=== PATIENT | female | born 1940 | race Caucasian/White ===

== ENCOUNTER 2021-02-24 00:29 | Emergency (ER) | payer OTHER ==
[~2021-02-24] VITALS: Ht 162.6 cm; Wt 68.0 kg
[~2021-02-24 00:29] MED LIST: AUGMENTIN 875875 MG PO; SIMVASTATIN20 MG PO; TOPROL XL25 MG PO
[2021-02-24] MEDS ORDERED: BENICAR40 MG PO (00:52)
[2021-02-24] MEDS ORDERED: ZOCOR20 MG PO (00:53)
[2021-02-24 02:20] VITALS: BP 177/97
== END 2021-02-24 02:21 | disposition home or self-care (01) ==
LOC: ER 00:29
DX: I10 Essential (primary) hypertension (principal); Z79.899 Other long term (current) drug therapy; Z88.2 Allergy status to sulfonamides